=== PATIENT | female | born 2000 | race Caucasian/White ===

== ENCOUNTER 2019-05-16 03:24 | Inpatient (IN) ==
[2019-05-16] MEDS ORDERED: ALUMINUM/MAGNESIUM SUSP 30 ML UDC PO PRN (03:45)
[2019-05-16] MEDS ORDERED: MAGNESIUM HYDROXIDE SUSP 30 ML UDC PO PRN (03:45)
[2019-05-16] MEDS ORDERED: ACETAMINOPHEN 325 MG TAB PO PRN (03:45)
[2019-05-16] MEDS ORDERED: BISMUTH SUBSALICYLATE PER ML OMNICELL CHARGE PO PRN (03:45)
[2019-05-16] MEDS ORDERED: SODIUM CHLORIDE 0.65% NA SOLN 45 ML (OCEAN) PRN (03:45)
[2019-05-16] MEDS ORDERED: NORETHINDRONE E ESTRADIOL IRON PO SCH (09:00)
--- NOTE | 2019-05-16 09:21 | History & Physical ---
Date of Service May 16, 2019 Impression / Recommendations Impression 19-year-old [employer] student from outside [place] who denies any past psychiatric history and was transferred from [facility] after an intentional overdose on melatonin and amoxicillin she initially reported was a suicide attempt. She was tearful in the ER, reported multiple stressors, and agreed to voluntary inpatient treatment. On initial assessment today, she appears to be minimizing recent mood symptoms, stressors, and her overdose, stating she does not think she needs to be in the hospital and that she only signed in because she did not want a 302 "on my record." Based on her reports today, she meets criteria for adjustment disorder, but we should attempt to get collateral information to look for more persistent mood symptoms that would indicate a major depressive disorder. She reports unhappiness with her relationship with her parents, but is declining a family meeting, although this would clearly be indicated to address some of her concerns about their communication and to voice her desire to work on improving the relationship. Although she is denying intent to end her life with her overdose, her roommate reported that she made statements that she wanted to and that her ex-boyfriend could attend her . We will attempt to engage her in groups and therapy, process her stressors, work on healthy ways to cope and her discharge safety plan, cord innate with the [place], and arrange outpatient treatment. Inpatient treatment is medically necessary due to the risk for suicide if discharged prematurely. (1) Overdose: -Every 15 minute checks for safety. -Patient denies access to guns; recommend meeting with roommates to discuss safety concerns in the apartment, including that all medications are removed or secured prior to discharge, given the impulsive nature of her overdose. Injury intent: intentional self-harm Present on Admission?: Yes (2) Adjustment disorder with depressed mood: 05/16 -discussed diagnosis with patient, including criteria for major depression and treatment options. Cannot rule out minimization of mood symptoms. Collateral information from roommates and/or family would be beneficial. Confirmed that she has therapy arranged at [facility], coordinate with [facility], and assist her in identifying healthy coping strategies and crisis supports. Present on Admission?: Yes Risk Factors Assessment Male: No : Yes Do You Have Access To A Gun?: No (brother has guns for hunting at parents' house, stored in a safe) Health Problems: No Mental Health Diagnoses: Yes Substance Use Disorders: No Previous Attempt: No Family History of Suicide: No Previous Psychiatric Hospitalization: No Hopelessness: No Smoker: No Protective Factors Assessment Sabianism Beliefs: No : No Responsible for Young Children: No Employed: No Stable Relationships: Yes Supportive Family: Yes Psychiatric History Identifying Data JENNIFER CROCKER is a 19-year-old [employer] student from [place], [place] who was admitted as a transfer from [facility] on 05/16/19 07:49 on a 201 voluntary commitment for a suicide attempt by overdose on melatonin and amoxicillin. Chief Complaint "I've been really stressed out recently". History of Present Illness Patient presented to [facility] on 05/15/2019 after an intentional overdose on an unknown amount of melatonin and amoxicillin. She reported relationship strain with her ex-boyfriend, and after taking the overdose told her friends "maybe he will show up to my ." Her friends said she reported taking 20 tablets of each medication, but she told ER staff she took 5-6 tablets of each medication. She vomited in the ER, was sedated and tearful. She initially refused lab work, stating she did not like needles. Her father was present in the ER, as was one of her roommates, Samantha, who said the patient stated she did not want to live anymore. She ultimately did get lab work, BMP, CBC, and TSH were normal; UA showed moderate blood, trace ketones, 6-10 WBCs, 10-20 RBCs, hCG was negative, and toxicology screen was negative. She reported multiple stressors, including that she does not feel her parents are supportive and does not feel able to talk to them about anything, as well as a recent breakup with her boyfriend. On my assessment, she reports she was talking to a friend about being upset that "I can't talk to anyone, and things just went south." She reports her boyfriend broke up with her 2 weeks ago and told her "to figure my stuff out," and although she felt down about it, doesn't think it was "the whole reason." She denies that she had been contemplating suicide or overdosing, but impulsively overdosed on melatonin and amoxicillin that she had in her dorm room. She says she "just wanted to sleep and be alone." Her friends then called 911. She reports feeling "stressed out" due to multiple things, including relationship with her parents, academics, and relationship with boyfriend. She cannot identify how long this has been going on. She endorses decreased appetite but stable weight, crying spells, and chronic longstanding difficulty falling asleep (averaging 5 hours a night). She denies anhedonia, states she was with her friends "having fun" the day prior to her overdose. She also endorses occasional anxiety with muscle tension and worry, occurring <50% of days, but denies other symptoms of VIANCA, panic, PTSD and OCD. She denies any history of previous depressive episodes, psychosis, and manic symptoms. She reports poor relationship with parents, stating she has never felt close to them, and that she can't talk to them or be open them. Gives example of being in the ER last night, and "my mom didn't even come." States they have been present physically for events in her life, but not able to be open with them. States she likes college, her classes, and being a cheerleader. Reports she has friends at college, who are good supports. Repeatedly states she does not think she needs to be here, and only signed in voluntarily because she did not want to be involuntarily committed "and have it on my record." She does not think she wants to have a family meeting with her parents, for unclear reasons, but is willing to have a meeting with her friends/roommates who are involved in getting her to the hospital. She does not think she is suffering from depression, and states that her overdose "was just a stupid mistake." Past Psychiatric History Previous Psych History: Denies Outpatient Services: None Previous Psych Admissions: Denies Do You Have Access To A Gun?: No (brother has guns for hunting at parents' house, stored in a safe) History of Previous Suicide Attempt: No Past Medication Trials: Denies Home Medications Home Medications Medication Instructions Recorded Confirmed Type norethindrone-e.estradiol-iron 1 tab PO DAILY 05/16/19 05/16/19 History [Aurovela 24 Fe] Family History Family History of: None Alcohol History Hx of Alcohol Use Over the Past 12 Months: Yes Audit score: 3 Cage questions negative Reports drinking 2-4 times a month, 3-4 drinks Smoking Use Have You Smoked or Used Tobacco Products in the Last 30 Days: No Smoking Status: Never smoker Substance History Hx of Prescription Med Misuse Over the Past 12 Months: No Hx of Over the Counter Med Misuse Over the Past 12 Months: No Hx of Inhalent Misuse Over the Past 12 Months: No Hx of Organic Substance Use Over the Past 12 Months: No Hx of Illegal Substances/Street Drug Use Over Past 12 Months: No Problems as a Result of Past Substance Use: None Identified Personal History Living Arrangements: Dorm Living Arrangements Comments: lives in apartment on [address] with a roommate Childhood: Raised in [facility] ([place], [place]), raised by both parents. Has one older brother and an older half sister whom she just found out about a couple of years ago. States her father hid it from them until she was 16 yrs old, and he did not tell them the details of his relationship with her mother. Reports she loves her parents, but doesn't feel able to talk to them about her personal life/issues. Highest Grade Completed: Some College Highest Grade Completed Comment: [employer] student, majoring in education (sophomore). States she is doing "very well" academically Employment Status: Student Marital Status: Single Hx Traumatic Life Events: No Patient History Social History Preferred Language: Algerian Communication Ability: Effective Graphic Manager Required: No Beliefs That Will Affect Care: None Feels Safe at Home: Yes Smoking Status: Never smoker Review of Systems Review of Systems: All systems reviewed & are unremarkable except as noted in HPI & below Physical Exam Psychiatric: Orientation: alert Cooperative, but not necessarily a reliable historian; often interrupts and answers questions to deny symptoms before the question has even been completed, and has given conflicting reports between initial evaluation in the ER last evening and evaluations this morning. Apperan ce: appropriately dressed and appeared stated age Good hygiene, grooming is slightly disheveled, with hair piled messily on top of head. Casually dressed in sweatshirt, wearing glasses. Eye Contact: good eye contact Motor Behavior: steady gait and station and no abnormal motor movements Speech: normal rate/rhythm/volume of speech Affect: + depressed affect and + anxious affect; + mood not congruent with affect "I'm fine, do not belong here." Thought Process: goal directed thought process Thought Content: + cognitive distortions Vague when asked about events that led to hospitalization, minimizing Suicidal Thoughts: denies suicidal thoughts Reports overdose yesterday was "a stupid mistake." Homicidal Thoughts: denies homicidal thoughts Hallucinations: no auditory hallucinations and no visual hallucinations Cognition: recent memory grossly intact, attention grossly intact and language grossly intact Estimated Intelligence: consistent with education level Insight: + limited insight Judgement: + limited judgement Exam Statement: A physical exam was performed in the ER prior to admission to the unit by Dr. Karlos Vogt. I accept that physical as correct/medical clearance for the inpatient physical exam. Results & Data Current Inpatient Medications Current Inpatient Medications: Current Inpatient Medications Acetaminophen (Tylenol) 650 mg PO Q4H PRN PRN Reason: Headache or Minor Fever Stop: 06/15/19 03:44 Al Hydrox/Mg Hydrox/Simethicone (Maalox) 30 ml PO Q4H PRN PRN Reason: GI Upset Stop: 06/15/19 03:44 Bismuth Subsalicylate (Kaopectate) 15 ml PO PRN PRN PRN Reason: Loose Stool Stop: 06/15/19 03:44 Hydroxyzine HCl (Vistaril) 25 mg PO Q4H PRN PRN Reason: Anxiety Stop: 06/15/19 03:44 Hydroxyzine HCl (Vistaril) 50 mg PO HSZ PRN PRN Reason: Insomnia Stop: 06/15/19 03:44 Magnesium Hydroxide (Milk Of Magnesia) 30 ml PO DAILY PRN PRN Reason: Constipation Stop: 06/15/19 03:44 Non-Formulary Medication (Norethindrone-E.Estradiol-Iron [Aurovela 24 Fe]) 1 tab PO DAILY DUSTY Stop: 06/15/19 08:59 Sodium Chloride ([place] Nasal) 1 - 2 sprays NA PRN PRN PRN Reason: Nasal Dryness/Congestion Stop: 06/15/19 03:44
[2019-05-16] MEDS: BIRTH CONTROL PO SCH (21:20)
[2019-05-17] MEDS ORDERED: BIRTH CONTROL PO SCH (09:00)
--- NOTE | 2019-05-17 13:11 | Psychiatric Progress Note ---
Date of Service May 17, 2019 Impression / Recommendations Impression 19-year-old [facility] student from outside [place] who denies any past psychiatric history and was transferred from [facility] after an intentional overdose on melatonin and amoxicillin she initially reported was a suicide attempt. She was tearful in the ER, reported multiple stressors, and agreed to voluntary inpatient treatment. On initial assessment, she appeared to be minimizing recent mood symptoms, stressors, and her overdose, stating she does not think she needs to be in the hospital and that she only signed in because she did not want a 302 "on my record." Based on her reports, she meets criteria for ad justment disorder, but we should attempt to get collateral information to look for more persistent mood symptoms that would indicate a major depressive disorder. She reports unhappiness with her relationship with her parents, but is declining a family meeting, although this would clearly be indicated to address some of her concerns about their communication and to voice her desire to work on improving the relationship. Although she is denying intent to end her life with her overdose, her roommate reported that she made statements that she wanted to and that her ex-boyfriend could attend her . Patient has been encouraged to attend groups and therapy, process her stressors, work on healthy ways to cope and her discharge safety plan, cord innate with the [place], and arrange outpatient treatment. Inpatient treatment is medically necessary due to the risk for suicide if discharged prematurely. (1) Overdose: -Every 15 minute checks for safety. -Patient denies access to guns; recommend meeting with roommates to discuss safety concerns in the apartment, including that all medications are removed or secured prior to discharge, given the impulsive nature of her overdose. 05/17 - Pt denies SI, verbalizing regret about her actions (2) Adjustment disorder with depressed mood: 05/16 -discussed diagnosis with patient, including criteria for major depression and treatment options. Cannot rule out minimization of mood symptoms. Collateral information from roommates and/or family would be beneficial. Confirmed that she has therapy arranged at [facility], coordinate with the [facility], and assist her in identifying healthy coping strategies and crisis supports. 05/17 - Briefly reviewed treatment plan, patient continues to declined medications, which are not clearly indicated for her diagnosis as is - Pt has communicated with parents via phone, but is not willing to involve them in a meeting - Will attempt to schedule meeting with roommate/friend - Continue to encourage active engagement in group and recreational programming Risk Factors Assessment Male: No : Yes Do You Have Access To A Gun?: No (brother has guns for hunting at parents' house, stored in a safe) Health Problems: No Mental Health Diagnoses: Yes Substance Use Disorders: No Previous Attempt: No Family History of Suicide: No Previous Psychiatric Hospitalization: No Hopelessness: No Smoker: No Protective Factors Assessment Alevism Beliefs: No : No Responsible for Young Children: No Employed: No Stable Relationships: Yes Supportive Family: Yes Interval History Identifying Information JENNIFER CROCKER is a 19-year-old [employer] student from [place], [place] who was admitted as a transfer from [facility] on 05/16/19 07:49 on a 201 voluntary commitment for a suicide attempt by overdose on melatonin and amoxicillin. Chief Complaint "I guess not so much question about being here, but when you think I would be able to leave?" Review of Systems Notes Constitutional: denied HEENT: reports left ear pain Cardiovascular: denied Respiratory: denied Gastrointestinal: denied Neurological: denied Psychiatric: denies symptoms other than stated above Total of at least 10 systems reviewed, pertinent positives as above and in HPI. Sleep Information Total Hours of Sleep: 6.5 Meal Information Percent Meal Consumed - Breakfast: 100 Percent Meal Consumed - Lunch: 100 Percent Meal Consumed - Dinner: 100 Subjective Subjective Patient was seen & assessed and interval progress reviewed with nursing and social work. Staff report the patient signed an RITO for her parents; however, is not willing to have a family meeting with them. She would instead rather include her roommate/friend. Patient did attend most groups last evening, but it is unclear to what extent she is actively engaging in treatment. She has been largely focused on discharge. Patient rated her mood an 8/10 last evening, reporting her goal is "to be discharged." Patient was seen today to assess progress since admission. She states that she feels things are going well, but still does not believe that she needs to be in inpatient treatment. Patient states she has been attending groups, but still feels that there is "nothing to do here" patient verbalizes multiple coping strategies that she states she can only complete outside of the hospital. This provider attempted to encourage patient to invest her time in treatment, making the most of her admission. When asked what the patient perceives is different from prior to her overdose, the patient is not able to clearly verbalize any constructive changes. Patient verbalizes that she has had communication with her parents and with her roommates, and states "everyone knows what is going on, I have been honest with them." When asked what patient perceives led to her overdose, the patient states "I do not know it was just really stupid. Overall I am a happy person." Patient states she is interested in having a meeting with her roommate tomorrow afternoon, and is requesting to be discharged soon. Patient denies persistent suicidal ideation. She continues to deny an interest in psychotropic medications. Patient does report left ear pain, which began prior to her admission. She is requesting Motrin for treatment of this pain, as this is generally beneficial for her. Patient denies other needs or concerns at this time, other than tasks she can complete to "rushed discharge." Patient was again encouraged to utilize the resources on the unit, and to make the most of her admission by developing healthy coping strategies. Physical Exam Psychiatric Orientation: alert, oriented x 3, cooperative (Superficially) and + guarded (When discussing communication with her family) Apperance: appropriately dressed (Casually, in sweatshirt and leggings), appropriately groomed and appeared stated age Eye Contact: good eye contact Motor Behavior: steady gait and station and no abnormal motor movements Speech: normal rate/rhythm/volume of speech Affect: euthymic affect and + irritable affect (Mildly, likely related to frustration with inpatient admission) Mood: no depressed mood ("I am feeling fine") and no anxious mood Thought Process: goal directed thought process, clear/coherent thought process and thought association intact Thought Content: reality based without delusions; no hopelessness and no worthlessness Suicidal Thoughts: denies suicidal thoughts and denies suicidal intent Homicidal Thoughts: denies homicidal thoughts Hallucinations: no auditory hallucinations and no visual hallucinations Cognition: attention grossly intact and language grossly intact Insight: + fair insight Judgement: + fair judgement Vital Signs (Past 24 Hours) Last Vital Signs Temp 36.6 C 05/17/19 06:00 Pulse 70 05/17/19 06:41 Resp 15 05/17/19 06:00 BP 99/65 L 05/17/19 06:41 Results & Data Current Inpatient Medications Current Inpatient Medications: Current Inpatient Medications Acetaminophen (Tylenol) 650 mg PO Q4H PRN PRN Reason: Headache or Minor Fever Stop: 06/15/19 03:44 Al Hydrox/Mg Hydrox/Simethicone (Maalox) 30 ml PO Q4H PRN PRN Reason: GI Upset Stop: 06/15/19 03:44 Bismuth Subsalicylate (Kaopectate) 15 ml PO PRN PRN PRN Reason: Loose Stool Stop: 06/15/19 03:44 Hydroxyzine HCl (Vistaril) 25 mg PO Q4H PRN PRN Reason: Anxiety Stop: 06/15/19 03:44 Hydroxyzine HCl (Vistaril) 50 mg PO HSZ PRN PRN Reason: Insomnia Stop: 06/15/19 03:44 Magnesium Hydroxide (Milk Of Magnesia) 30 ml PO DAILY PRN PRN Reason: Constipation Stop: 06/15/19 03:44 Oral Control - Non-Formulary Patient's Own Med 1 ea PO HS DUSTY Stop: 06/15/19 21:59 Last Admin: 05/16/19 21:20 Dose: 1 tab Documented by: Sodium Chloride ([place] Nasal) 1 - 2 sprays NA PRN PRN PRN Reason: Nasal Dryness/Congestion Stop: 06/15/19 03:44 Mental Health & Subst Abuse Tx Therapist Name of Therapist: [facility] Services - Lora Mueller Therapist's Date of Therapist Appointment: 05/20/19 Time of Therapist Appointment: 1:00 p.m. Therapy Appointment Comment: [facility] Post Discharge Appointments Primary Care Physician Name Of Family Doctor: [facility] Time of Appointment with PCP: Follow up as needed Provider Appointment Comment: [facility] Contact Information Discharge Discharge Address: Sharon: [address] [place] [address], [facility] Contact Information Comment: Home: [address] [place] [id number] (1) Overdose Injury intent: intentional self-harm
[2019-05-17] MEDS ORDERED: IBUPROFEN 600 MG TAB PO PRN (14:44)
[2019-05-17] MEDS: BIRTH CONTROL PO SCH (21:10)
--- NOTE | 2019-05-18 13:53 | Psychiatric Progress Note ---
Date of Service May 18, 2019 Impression / Recommendations Impression 19-year-old [employer] [facility] [employer] student from outside [place] who denies any past psychiatric history and was transferred from [facility] after an intentional overdose on melatonin and amoxicillin she initially reported was a suicide attempt. She was tearful in the ER, reported multiple stressors, and agreed to voluntary inpatient treatment. On initial assessment, she appeared to be minimizing recent mood symptoms, stressors, and her overdose, stating she does not think she needs to be in the hospital and that she only signed in because she did not want a 302 "on my record." Based on her reports, she meets criteria for ad justment disorder, but we should attempt to get collateral information to look for more persistent mood symptoms that would indicate a major depressive disorder. She reports unhappiness with her relationship with her parents, but is declining a family meeting, although this would clearly be indicated to address some of her concerns about their communication and to voice her desire to work on improving the relationship. Although she is denying intent to end her life with her overdose, her roommate reported that she made statements that she wanted to and that her ex-boyfriend could attend her . Patient has been encouraged to attend groups and therapy, process her stressors, work on healthy ways to cope and her discharge safety plan, cord innate with the [facility], and arrange outpatient treatment. Inpatient treatment is medically necessary due to the risk for suicide if discharged prematurely. (1) Overdose: -Every 15 minute checks for safety. -Patient denies access to guns; recommend meeting with roommates to discuss safety concerns in the apartment, including that all medications are removed or secured prior to discharge, given the impulsive nature of her overdose. 05/17 - Pt denies SI, verbalizing regret about her actions 05/18 - Continues to deny SI, stating it was "a stupid hungover mistake" (2) Adjustment disorder with depressed mood: 05/16 -discussed diagnosis with patient, including criteria for major depression and treatment options. Cannot rule out minimization of mood symptoms. Collateral information from roommates and/or family would be beneficial. Confirmed that she has therapy arranged at [facility], coordinate with [facility], and assist her in identifying healthy coping strategies and crisis supports. 05/17 - Briefly reviewed treatment plan, patient continues to declined medications, which are not clearly indicated for her diagnosis as is - Pt has communicated with parents via phone, but is not willing to involve them in a meeting - Will attempt to schedule meeting with roommate/friend - Continue to encourage active engagement in group and recreational programming 05/18 - Pt continues to have difficulty understanding ways in which she can utilize staff to develop coping strategies and improve her overall condition - She remains highly focused on being "trapped" and "locked up like an animal" - She has demonstrated difficulty actively engaging in groups and opening up about stressors - In light of recent concerns voiced by roommates and ex-boyfriend, we are recommending a family meeting with outpatient supports - Family meeting scheduled with parents for tomorrow Risk Factors Assessment Male: No : Yes Do You Have Access To A Gun?: No (brother has guns for hunting at parents' house, stored in a safe) Health Problems: No Mental Health Diagnoses: Yes Substance Use Disorders: No Previous Attempt: No Family History of Suicide: No Previous Psychiatric Hospitalization: No Hopelessness: No Smoker: No Protective Factors Assessment Muslim Beliefs: No : No Responsible for Young Children: No Employed: No Stable Relationships: Yes Supportive Family: Yes Interval History Identifying Information JENNIFER CROCKER is a 19-year-old [employer] student from [place], [place] who was admitted as a transfer from [facility] on 05/16/19 07:49 on a 201 voluntary commitment for a suicide attempt by overdose on melatonin and amoxicillin. Chief Complaint "Ok now. I didn't get the greatest news this morning." Review of Systems Notes Constitutional: reports headache from "being trapped in here with no circulating air" Cardiovascular: denied Respiratory: denied Gastrointestinal: denied Neurological: denied Psychiatric: denies symptoms other than stated above Total of at least 10 systems reviewed, pertinent positives as above and in HPI. Sleep Information Total Hours of Sleep: 6 Sleep Comments: pt on q-15 minute checks Meal Information Percent Meal Consumed - Breakfast: 100 Percent Meal Consumed - Lunch: 90 Percent Meal Consumed - Dinner: 75 Subjective Subjective Patient was seen & assessed and interval progress reviewed with treatment team. Staff reports receiving a phone call from patient's father last evening, reporting multiple concerning calls from the patient's roommates and the mother of her ex-boyfriend. All individuals verbalized concern about the patient's behavior, mood concerns, and worry about patient's level of alcohol use. Staff spoke with patient this morning about these updates, in attempts to encourage her to move beyond minimizing her symptoms. Pt remained frustrated for a large part of the day. Pt was seen today to assess progress since admission. Pt begins our conversation with a pleasant demeanor initially. She states she is "good" and that she is attending groups. She admits she finds it helpful to listen to other patient's share in groups, commenting about one patient being "a mother, it's nice to hear her talk about her kids." Pt becomes tearful and shares with this provider her frustration toward her parents, stating "this meeting is making me really freaking nervous. It's not going to good, my parents won't be supportive. They will make fun of me for this for the rest of my life." Pt begins to display increased irritability, verbalizing that she feels she is "trapped" that she is "in [facility] here." Pt states that "I'm the only one who knows how I feel, not my roommates, not my parents. Only me." This provider agreed that at times it may feel this way, but was asked if she viewed this as an issue, that she does not feel able to communicate her feelings to anyone. Pt denied this, and refused to continue discussing anything more about her limited support system. She spends quite some time verbalizing all the reasons she does not feel comfortable on the unit and why she feels "locked up and tagged like an animal." Multiple attempts were made to redirect the patient toward ways she can utilize her time her in a positive way, as well as encouraging focus on her treatment. Pt remained tearful and irritable, at the end of the visit requesting to sign a 72-hour notice. This procedure was explained to her, and nursing was requested to review again, as the patient requested "a second opinion." She denies other needs at this time. Physical Exam Psychiatric Orientation: alert, oriented x 3 and + guarded; + uncooperative Apperance: appropriately dressed (casually, in t-shirt and shorts), appropriately groomed and appeared stated age Eye Contact: good eye contact Motor Behavior: steady gait and station and no abnormal motor movements Speech: normal rate/rhythm/volume of speech Affect: + tearful affect and + angry affect Thought Process: goal directed thought process, clear/coherent thought process and thought association intact Thought Content: + cognitive distortions Suicidal Thoughts: denies suicidal thoughts Homicidal Thoughts: denies homicidal thoughts Hallucinations: no auditory hallucinations and no visual hallucinations Cognition: attention grossly intact and language grossly intact Insight: + poor insight Judgement: + fair judgement Vital Signs (Past 24 Hours) Last Vital Signs Temp 36.6 C 05/18/19 06:37 Pulse 72 05/18/19 06:38 Resp 18 05/18/19 06:37 BP 100/66 05/18/19 06:38 Results & Data Current Inpatient Medications Current Inpatient Medications: Current Inpatient Medications Acetaminophen (Tylenol) 650 mg PO Q4H PRN PRN Reason: Headache or Minor Fever Stop: 06/15/19 03:44 Al Hydrox/Mg Hydrox/Simethicone (Maalox) 30 ml PO Q4H PRN PRN Reason: GI Upset Stop: 06/15/19 03:44 Bismuth Subsalicylate (Kaopectate) 15 ml PO PRN PRN PRN Reason: Loose Stool Stop: 06/15/19 03:44 Hydroxyzine HCl (Vistaril) 25 mg PO Q4H PRN PRN Reason: Anxiety Stop: 06/15/19 03:44 Hydroxyzine HCl (Vistaril) 50 mg PO HSZ PRN PRN Reason: Insomnia Stop: 06/15/19 03:44 Ibuprofen (Motrin) 600 mg PO Q6H PRN PRN Reason: Pain Stop: 06/16/19 14:43 Magnesium Hydroxide (Milk Of Magnesia) 30 ml PO DAILY PRN PRN Reason: Constipation Stop: 06/15/19 03:44 Oral Control - Non-Formulary Patient's Own Med 1 ea PO HS DUSTY Stop: 06/15/19 21:59 Last Admin: 05/17/19 21:10 Dose: 1 tab Documented by: Sodium Chloride ([place] Nasal) 1 - 2 sprays NA PRN PRN PRN Reason: Nasal Dryness/Congestion Stop: 06/15/19 03:44 Mental Health & Subst Abuse Tx Therapist Name of Therapist: [facility] Services - Lora Mueller Therapist's Date of Therapist Appointment: 05/20/19 Time of Therapist Appointment: 1:00 p.m. Therapy Appointment Comment: [facility] Post Discharge Appointments Primary Care Physician Name Of Family Doctor: [facility] Time of Appointment with PCP: Follow up as needed Provider Appointment Comment: [facility], [facility] Contact Information Discharge Discharge Address: [place]: [address] [place] [address], [facility] [address], [place] [facility] Contact Information Comment: Home: [place] [address] (1) Overdose Injury intent: intentional self-harm
[2019-05-18] MEDS: BIRTH CONTROL PO SCH (21:28)
--- NOTE | 2019-05-19 11:18 | Discharge Summary ---
Date of Service May 19, 2019 History of Present Illness Patient presented to [facility] on 05/15/2019 after an intentional overdose on an unknown amount of melatonin and amoxicillin. She reported relationship strain with her ex-boyfriend, and after taking the overdose told her friends "maybe he will show up to my ." Her friends said she reported taking 20 tablets of each medication, but she told ER staff she took 5-6 tablets of each medication. She vomited in the ER, was sedated and tearful. She initially refused lab work, stating she did not like needles. Her father was present in the ER, as was one of her roommates, Samantha, who said the patient stated she did not want to live anymore. She ultimately did get lab work, BMP, CBC, and TSH were normal; UA showed moderate blood, trace ketones, 6-10 WBCs, 10-20 RBCs, hCG was negative, and toxicology screen was negative. She reported multiple stressors, including that she does not feel her parents are supportive and does not feel able to talk to them about anything, as well as a recent breakup with her boyfriend. On my assessment, she reports she was talking to a friend about being upset that "I can't talk to anyone, and things just went south." She reports her boyfriend broke up with her 2 weeks ago and told her "to figure my stuff out," and although she felt down about it, doesn't think it was "the whole reason." She denies that she had been contemplating suicide or overdosing, but impulsively overdosed on melatonin and amoxicillin that she had in her dorm room. She says she "just wanted to sleep and be alone." Her friends then called 911. She reports feeling "stressed out" due to multiple things, including relationship with her parents, academics, and relationship with boyfriend. She cannot identify how long this has been going on. She endorses decreased appetite but stable weight, crying spells, and chronic longstanding difficulty falling asleep (averaging 5 hours a night). She denies anhedonia, states she was with her friends "having fun" the day prior to her overdose. She also endorses occasional anxiety with muscle tension and worry, occurring <50% of days, but denies other symptoms of VIANCA, panic, PTSD and OCD. She denies any history of previous depressive episodes, psychosis, and manic symptoms. She reports poor relationship with parents, stating she has never felt close to them, and that she can't talk to them or be open them. Gives example of being in the ER last night, and "my mom didn't even come." States they have been present physically for events in her life, but not able to be open with them. States she likes college, her classes, and being a cheerleader. Reports she has friends at college, who are good supports. Repeatedly states she does not think she needs to be here, and only signed in voluntarily because she did not want to be involuntarily committed "and have it on my record." She does not think she wants to have a family meeting with her parents, for unclear reasons, but is willing to have a meeting with her friends/roommates who are involved in getting her to the hospital. She does not think she is suffering from depression, and states that her overdose "was just a stupid mistake." Physical Exam Psychiatric Orientation: alert, oriented x 3 and cooperative (Very pleasant today) Apperance: appropriately dressed (Casually, in T-shirt and shorts), ap propriately groomed and appeared stated age Eye Contact: good eye contact Motor Behavior: steady gait and station and no abnormal motor movements Speech: normal rate/rhythm/volume of speech Affect: euthymic affect and mood congruent with affect; no irritable affect Mood: no depressed mood ("I am really feeling good, things are a lot better") Thought Process: goal directed thought process, clear/coherent thought process and thought association intact Thought Content: reality based without delusions Suicidal Thoughts: denies suicidal thoughts, denies suicidal plan and denies suicidal intent Homicidal Thoughts: denies homicidal thoughts Hallucinations: no auditory hallucinations and no visual hallucinations Cognition: attention grossly intact and language grossly intact Insight: good insight Judgement: good judgement Vital Signs (Past 24 Hours) Last Vital Signs Temp 36.6 C 05/19/19 10:53 Pulse 75 05/19/19 10:53 Resp 18 05/19/19 10:53 BP 113/76 05/19/19 10:53 Principal Diagnosis - Adjustment disorder with depressed mood Psychiatric Data 19-year-old female admitted voluntarily for inpatient psychiatric treatment on 05/16/2019. Patient was transferred to our unit from [facility]'s ED, where she presented via EMS after concerned friends called 911. It was reported that the patient had been struggling with multiple stressors, including strained relationship with her parents, academic stress, and a recent breakup. It is reported the patient made statements of "I just want to sleep and be alone." Patient did admit at time of admission that she had impulsively overdosed on melatonin and amoxicillin, which she had available in her dorm room. From time of admission, patient continued to state that the overdose was "just a stupid mistake", and seemingly minimized a great deal of her history. Although patient attended groups early in her stay, she was not overly engaged in programming and had difficulty opening up with staff. Staff did receive a phone call from the patient's father, stating the father had received multiple phone calls from concerned friends and parents of friends. Concerns raised were related to her agitated reaction to the recent breakup and increased alcohol use. staff did confront the patient about these reports, and she began to open up about some of the stressors. Patient was eventually agreeable to involving her parents in a family meeting. She did admit that the meeting went "better than expected" and that she feels that her parents are more supportive than she initially thought. Throughout the duration of the patient's hospitalization, she became more comfortable with attending and participating in group programming. She continued to deny suicidality for the duration of her stay, consistently verbalizing her overdose as "a mistake." Patient did not identify symptoms consistent with a formal depressive disorder or anxiety disorder, and was treated for adjustment disorder with depressed mood. Medications were not clearly indicated, and patient verbalized a desire to target her symptoms without pharmacotherapy. Patient had already set up an outpatient therapy intake appointment, which was rescheduled due to her hospitalization. The appointment is now scheduled for the day after discharge, and patient verbalizes desire to meet regularly with her therapist to continue to discuss these topics. At time of discharge, patient is denying suicidality and significant symptoms of other psychiatric concerns. She is future oriented and conversation, verbalizing a desire to return to school, email her providers, and return to chair practice. Based on review of patient's case and their current presentation, risk of harm to self or others is no longer perceived to be acute. Management of symptoms on an outpatient basis seems the most appropriate and least restrictive setting. Pt seems appropriate for discharge with re commendation for consistent follow-up with outpatient therapist. Pt verbalized understanding of discharge plan reviewed and is agreeable with plan to be discharged home today. Day of Discharge Assessment Patient's case was reviewed and discussed with nursing and social work. Staff reports the patient has continued to participate in groups, but has been vocal about feeling she no longer needs to be hospitalized. Patient did request and signed her 72-hour notice, which expires on 05/21 at 2100. Patient was agreeable with scheduling a meeting her parents for this morning. Patient was seen today following this meeting to assess readiness for discharge. It was expressed during the meeting, the parents felt comfortable with issues discussed and did not feel patient was at acute risk of harm to herself or others at this time. Parents reportedly felt most comfortable with taking the patient back to campus themselves, since they are in town. Safety and discharge planning was reviewed with parents during the meeting, who are agreeable with the idea of discharge today and voiced no concerns. Patient admits to this provider that she feels the meeting went "better than I expected." She admits that they were able to discuss some topics which she believes will improve communication in the future. Patient states "I was nervous this morning before the meeting, but it was a good nervous. I am really happy with how things went and I am glad I had a meeting with them." Patient states "I am definitely happy I left the wall down, I think it was good to talk to them." The patient admits that she continues to attend group programming, which she is finding beneficial. Patient is requesting to leave, she believes the benefits of inpatient treatments are no longer outweighing the stress of missed classes and delayed schoolwork. Patient denies suicidality, stating she has not felt suicidal since admission. Patient is aware that she has a therapy appointment scheduled for tomorrow, and is excited to continue some of these conversations with her outpatient therapist. Patient denies needs or concerns prior to discharge. She is able to verbalize aspects of her safety plan with this provider. Written safety plan was reviewed by this provider prior to discharge. At this time, it is felt the patient is not at acute risk of harm to herself or others and parents have verbalized agreement with plan to discharge back to [facility]'s campus today. Parents are planning to transport the patient. No additional safety concerns are reported. ROS: Constitutional: denied Cardiovascular: denied Respiratory: denied Gastrointestinal: denied Neurological: denied Psychiatric: denies symptoms other than stated above Total of at least 10 systems reviewed, pertinent positives as above and in HPI. Transition of Care Transition Of Care Record: was reviewed with the patient Advance Directives Advance Directives Information Provided: Yes Advance Directives: No Mental Health Advance Directive: No Advance Directives on File: No Living Will: No Power of Emergency Medical Technician/Driver: No Advance Directives Reason:: Declines as Mental Health Visit. Risk Factors Assessment Presenting risk factors reviewed on discharge. Precipitating stressors mitigated by: admission for inpatient psychiatric observation and treatment, attendance of therapeutic treatment groups, development of healthy and effective coping strategies, involvement of outpatient supports, completion of a safety plan, discussion regarding substance abuse and effects on mental health diagnoses, and education on diagnoses. Pt has demonstrated improvement in condition with regard to improvement in mood, resolution of SI, honest expression of struggles with parents, and confirmation of therapy appointment. At this time, patient is requesting discharge and is no longer considered to be at acute risk of harm to herself or others. Pt will be discharged with recommendation for ongoing outpatient psychiatric treatment. Male: No : Yes Do You Have Access To A Gun?: No (brother has guns for hunting at parents' house, stored in a safe) Health Problems: No Mental Health Diagnoses: Yes Substance Use Disorders: No Previous Attempt: No Family History of Suicide: No Previous Psychiatric Hospitalization: No Hopelessness: No Smoker: No Protective Factors Assessment Mandaeism Beliefs: No : No Responsible for Young Children: No Employed: No Stable Relationships: Yes Supportive Family: Yes Tobacco Cessation at Discharge Tobacco Cessation Medication Prescribed at Discharge: Not Applicable/Non-Smoker Total Time Total Time Spent: Greater Than 30 Minutes Total Time Includes: Examination of the patient, Discharge Planning, Medication Reconciliation and Communication with other providers Hospital Course (1) Overdose: -Every 15 minute checks for safety. -Patient denies access to guns; recommend meeting with roommates to discuss safety concerns in the apartment, including that all medications are removed or secured prior to discharge, given the impulsive nature of her overdose. 05/17 - Pt denies SI, verbalizing regret about her actions 05/18 - Continues to deny SI, stating it was "a stupid hungover mistake" (2) Adjustment disorder with depressed mood: 05/16 -discussed diagnosis with patient, including criteria for major de pression and treatment options. Cannot rule out minimization of mood symptoms. Collateral information from roommates and/or family would be beneficial. Confirmed that she has therapy arranged at [facility], coordinate with the [place], and assist her in identifying healthy coping strategies and crisis supports. 05/17 - Briefly reviewed treatment plan, patient continues to declined medications, which are not clearly indicated for her diagnosis as is - Pt has communicated with parents via phone, but is not willing to involve them in a meeting - Will attempt to schedule meeting with roommate/friend - Continue to encourage active engagement in group and recreational programming 05/18 - Pt continues to have difficulty understanding ways in which she can utilize staff to develop coping strategies and improve her overall condition - She remains highly focused on being "trapped" and "locked up like an animal" - She has demonstrated difficulty actively engaging in groups and opening up about stressors - In light of recent concerns voiced by roommates and ex-boyfriend, we are recommending a family meeting with outpatient supports - Family meeting scheduled with parents for tomorrow Mental Health & Subst Abuse Tx Therapist Name of Therapist: [facility] Counseling Services - Lora Mueller Therapist's Date of Therapist Appointment: 05/20/19 Time of Therapist Appointment: 1:00 p.m. Therapy Appointment Comment: [facility] Post Discharge Appointments Primary Care Physician Name Of Family Doctor: [facility] Time of Appointment with PCP: Follow up as needed Provider Appointment Comment: [facility] Smoking Cessation Counseling Tobacco Cessation Medication Prescribed at Discharge: Not Applicable/Non-Smoker Contact Information Discharge Discharge Address: [place]: [address] [place] [address] Contact Information Comment: Home: [address] [place] [id number] Discharge Plan Discharge Items Patient Disposition: Home - Self-Care Reason For Visit: DEPRESSION Discharge Diagnosis: Adjustment disorder with depressed mood Condition on Discharge: Good Activity: Resume your previous activity Non-emergency contact: Primary Care Provider and Therapist Call non-emergency contact if: you have any medication questions and your symptoms worsen Follow-up/Referrals: PCP,NO [Primary Care Provider] - Diet: Regular Addtl Attending Provider Instructions: SPECIAL CARE INSTRUCTIONS: 1. Follow through with your scheduled aftercare appointments. If unable to keep an appointment, please call to reschedule. 2. Take your medication only as prescribed. Medication should not be changed or stopped without the approval of your doctor. In the event of worsening symptoms or concerns about side effects, contact your doctor immediately. 3. Utilize new healthy coping skills, anger management skills, and stress management skills learned during your hospitalization. Journal feelings and process them with a support person. Identify stressors or situations that may result in relapse, deterioration or inappropriate behaviors and develop a plan to deal with those issues. 4. If your coping skills are ineffective and you are in crisis, contact your outpatient providers for direction. If unable to reach your providers, please call the CAN HELP LINE AT or go to the closest Emergency Room. 5. Avoid alcohol and un-prescribed drugs. 6. You have been provided with the Mental Health Advance Directives Pamphlet for your review. AFTERCARE APPOINTMENTS: * Please call your insurance company prior to your scheduled appointment to confirm your aftercare providers are covered. Take your insurance information to your appointments. WHO TO CALL AND WHEN: Medical Emergencies: For questions or emergencies related to your hospital stay, please contact the Inpatient Behavioral Health Unit at [phone]. A workplace rehabilitation officer is on-call 16/02 for the Behavioral Health Unit for emergencies At any time you feel your situation is an emergency, you may also call 911 immediately. Your Doctors Instructions noted above were prepared by provider Keeley Kimblal PA-C. Pending Studies at Discharge: No Stand-Alone Forms: My [facility], Smoking Cessation Medications and DC Order Prescriptions: Continued norethindrone-e.estradiol-iron [Aurovela 24 Fe] 1 mg-20 mcg (24)/75 mg (4) tablet 1 tab PO DAILY RF: 0 Discharge Orders: Discharge Order (Routine); Ordered 05/19/19 Ordered By: Keeley Kimball Admission Data Admit Date/Time: 05/16/19 07:49 Attending Provider: Opal Suarez Admit Provider: Nessa Hewitt Primary Care Provider: PCP,NO Other Interventions: Discharge Summary Assessment (RN) Last Done: 05/19/19 10:53 PSY Interdisciplinary Discharge Planning Last Done: 05/19/19 11:56 Coding Level of Care Code 77006 D/C day mgmt > 30 min Diagnoses Overdose T50.901A Injury intent: intentional self-harm Adjustment disorder with depressed mood F43.21
== END 2019-05-19 13:15 | disposition home or self-care (01) | DRG 881 ==
LOC: 3S 07:49